=== PATIENT | male | born 1975 | race Two or more races ===

== ENCOUNTER 2020-10-30 16:16 | Emergency (ER) | payer SELFPAY | END 2020-10-30 18:51 | disposition left against medical advice (07) | LOC: ER 16:16 | DX: M54.5 Low back pain (principal); Z53.21 Procedure and treatment not carried out due to patient leaving prior to being seen by health care provider ==

== ENCOUNTER 2023-08-18 11:19 | Emergency (ER) | payer BC ==
[~2023-08-18] VITALS: Ht 170.2 cm; Wt 78.2 kg
[2023-08-18 13:07] VITALS: BP 135/81; PULSE 120; RESP 18; O2SAT 94
[2023-08-18] MEDS ORDERED: IBUPROFEN 800 MG TAB PO ONE (14:00)
[2023-08-18] MEDS ORDERED: cefTRIAXone SOD 1,000 MG VL IM ONE (14:00)
[2023-08-18 14:47] VITALS: TEMP 97.7
[2023-08-18] MEDS ORDERED: CEPH500C PO (15:08)
[2023-08-18] MEDS ORDERED: IBUP-1456 PO (15:08)
[2023-08-18] MEDS ORDERED: CLIN300C70 PO (15:08)
== END 2023-08-18 15:18 | disposition home or self-care (01) ==
LOC: ER 11:19
DX: L02.225 Furuncle of perineum (principal); Z79.899 Other long term (current) drug therapy
CPT/HCPCS: 96372; 99283; J0696